=== PATIENT | female | born 1975 | race Two or more races ===

== ENCOUNTER → 2018-05-06 | Emergency (ER) | payer OTHER ==
[~2018-05-06] VITALS: Ht 157.5 cm; Wt 79.4 kg
[~2018-05-06] MED LIST: VENTOLIN HFA18 GM; YAZ 28 TABLET1 TAB PO
== END | disposition home or self-care (01) ==
LOC: EMR PED 18:44 → ER 19:22
DX: J45.998 Other asthma (principal); B34.9 Viral infection, unspecified

== ENCOUNTER 2022-04-21 14:42 | Emergency (ER) | payer OTHER ==
[~2022-04-21] VITALS: Ht 157.5 cm; Wt 77.1 kg
== END 2022-04-21 19:29 | disposition home or self-care (01) ==
LOC: ER 14:42
DX: S93.402A Sprain of unspecified ligament of left ankle, initial encounter (principal); X58.XXXA Exposure to other specified factors, initial encounter; Y93.9 Activity, unspecified; Y92.9 Unspecified place or not applicable